=== PATIENT | female | born 2000 | race Two or more races ===

== ENCOUNTER 2023-05-02 12:07 | Emergency (ER) | payer MEDICAID ==
[~2023-05-02] VITALS: Ht 160 cm; Wt 52.0 kg
[2023-05-02 12:11] VITALS: O2SAT 100
[2023-05-02] MEDS ORDERED: SODIUM CHLORIDE 0.9% 1,000 ML IV ONE (12:30)
[2023-05-02] MEDS ORDERED: FAMOTIDINE 20MG/2ML VIAL IV ONE (12:30)
[2023-05-02] MEDS ORDERED: ONDANSETRON HCL 4MG/2ML INJ IV ONE (12:30)
[2023-05-02 13:12] LABS: BASOPHILS % 0.5 % (0.0-2.0); EOSINOPHILS % 1.3 % (0.0-5.0); HEMOGLOBIN. 10.8 g/dL (12.0-16.0); LYMPHOCYTES % 17.3 % (20.0-50.0); MEAN CORPUSCULAR HEMOGLOBIN 31.4 pg (28.0-32.0); MEAN CORPUSCULAR HGB CONC 33.7 g/dL (31.0-37.0); MEAN CORPUSCULAR VOLUME 93.2 fL (81.0-99.0); MEAN PLATELET VOLUME 7.9 fl (7.4-10.4); MONOCYTES % 8.4 % (2.0-8.0); NEUTROPHILS % 72.5 % (40.0-76.0); PLATELET 183 x1000/uL (130-400); RED BLOOD CELL COUNT 3.44 mill/uL (4.2-5.4); RED CELL DISTRIBUTION WIDTH 15.1 % (11.6-14.6); WHITE BLOOD COUNT 4.3 x1000/uL (4.5-11.0)
[2023-05-02 13:23] LABS: PROTHROMBIN TIME 11.1 sec (9.6-11.0)
[2023-05-02 13:45] LABS: CHLORIDE 103 mEq/L (98-107); INDEX HEMOLYSI 1 (1-3); INDEX ICTERIC 1 (1-4); INDEX LIPEMIC 1 (1-3); POTASSIUM 3.3 mEq/L (3.5-5.1); SODIUM 135 mEq/L (136-145)
[2023-05-02 13:56] LABS: HCG SCREEN NEGATIVE
[2023-05-02] MEDS ORDERED: POTASSIUM CHLORIDE 20MEQ/PACKET PO NR (14:00)
[2023-05-02 14:01] LABS: ALANINE AMINOTRANSFERASE 33 IU/L (13-61); ALBUMIN 3.6 g/dL (3.4-5.0); ASPARTATE AMINOTRANSFERASE 30 IU/L (15-37); BILIRUBIN TOTAL 0.1 mg/dL (0.1-1.0); CALCIUM 8.5 mg/dL (8.5-10.1); CARBON DIOXIDE 25 mEq/L (21-32); CREATININE 0.5 mg/dL (0.6-1.3); GLUCOSE 140 mg/dL (70-105); PROTEIN TOTAL 7.3 g/dL (6.0-8.3); UREA NITROGEN BLOOD 8 mg/dL (7-21)
[2023-05-02 14:27] LABS: TROPONIN I HIGH SENSITIVITY < 4 ng/L (<54)
[2023-05-02 15:42] VITALS: BP 100/58; PULSE 78; RESP 18; TEMP 98.2
== END 2023-05-02 15:43 | disposition home or self-care (01) ==
LOC: ER 12:07
DX: R09.A2 Foreign body sensation, throat (principal); I49.9 Cardiac arrhythmia, unspecified
CPT/HCPCS: 80053; 84703; 83690; 85025; 85610; 84484; 36415; 71045; 93005; 96361; 96374; 96375; 99285; J3490; J2405; J7030; Z7610 ×2

== ENCOUNTER 2023-10-24 16:44 | Emergency (ER) | payer MEDICAID ==
[~2023-10-24] VITALS: Ht 157.5 cm; Wt 59.0 kg
[2023-10-24 16:49] VITALS: O2SAT 100
[2023-10-24] MEDS: ACETAMINOPHEN 325MG TABLET PO ONE (17:15)
[2023-10-24] MEDS: MORPHINE SULFATE 4 MG/ML INJ (FOR IV/IM USE) IM ONE (18:43)
[2023-10-24] MEDS ORDERED: CYCL10TA21 MT (21:54)
[2023-10-24] MEDS ORDERED: IBUP-2029 MT (21:54)
[2023-10-24 22:25] VITALS: BP 87/48; PULSE 75; RESP 18; TEMP 98
== END 2023-10-24 22:35 | disposition home or self-care (01) ==
LOC: ER 16:44
DX: M54.9 Dorsalgia, unspecified (principal); F41.9 Anxiety disorder, unspecified; F32.A Depression, unspecified
CPT/HCPCS: 99285; 70450; 71045; 72070; 72100; 72170; 72125; 96372; J2270